=== PATIENT | female | born 1990 | race African-American/Black ===

== ENCOUNTER 2018-08-06 06:00 | Emergency (ER) | payer MEDICAID ==
[~2018-08-06] VITALS: Ht 172.7 cm; Wt 63.0 kg
[2018-08-06 07:59] VITALS: BP 120/74
== END 2018-08-06 07:59 | disposition home or self-care (01) ==
LOC: ER 06:00
DX: Z34.00 Encounter for supervision of normal first pregnancy, unspecified trimester (principal); Z76.0 Encounter for issue of repeat prescription; Z71.89 Other specified counseling
CPT/HCPCS: 99283

== ENCOUNTER 2021-04-09 22:18 | Emergency (ER) | payer MEDICARE, OTHER ==
[~2021-04-09] VITALS: Ht 172.7 cm; Wt 76.9 kg
[2021-04-10] MEDS ORDERED: ONDANSETRON 4MG ODT PO ONE (02:30)
[2021-04-10 04:10] VITALS: BP 121/69
== END 2021-04-10 04:10 | disposition home or self-care (01) ==
LOC: ER 22:18
DX: U07.1 COVID-19 (principal)
CPT/HCPCS: 71045; 81025; 87426; 87804; 99284; C9803; Q0162; U0003; U0005